=== PATIENT | male | born 1980 | race Caucasian/White ===

== ENCOUNTER 2017-02-11 23:06 | Emergency (ER) | payer BC ==
[2017-02-11 23:38] VITALS: BP 117/73; PULSE 77; BMI 29.7
[2017-02-12] MEDS ORDERED: LORazepam 2 MG/ML SDV VIAL ONE ×2 (00:04→00:57)
[2017-02-12] MEDS ORDERED: HALOPERIDOL LACTATE 5 MG/ML ONE (00:04)
--- NOTE | 2017-02-12 00:46 | PDOC ---
History of Present Illness - General History Source: EMS Exam Limitations: Clinical Condition, Intoxication - History of Present Illness Initial Comments: 02/12/17 02:06 36-year-old male brought in by EMS for acute alcohol intoxication. Patient refuses to cooperate with the history of present illness and review of systems. No further history is provided by EMS. No history of trauma is reported. REVIEW OF SYSTEMS Unable to obtain due to patient's intoxication EXAMINATION CONSTITUTIONAL: Awake and alert, alcohol on breath, ataxic, uncooperative, HEAD: Normocephalic; atraumatic EYES: Pupils are round and reactive, dilated up to 5 mm bilaterally; EOM intact ; no nystagmus; ENMT: External appears normal; normal oropharynx NECK: Supple; non-tender; no cervical lymphadenopathy CARD: Normal S1, S2; no murmurs, rubs, or gallops RESP: Normal chest excursion with respiration; breath sounds clear and equal bilaterally; no wheezes, rhonchi, or rales ABD: Soft, non-distended; non-tender; no palpable organomegaly, no palpable hernias EXT: Normal ROM in all four extremities; non-tender to palpation; distal pulses intact SKIN: Warm, dry, no rash NEURO: Awake and alert, oriented to self and place; uncooperative, gait-ataxic, moving all extremities symmetrically; <Saman Briscoe - Last Filed: 02/12/17 02:16> <Laura Garcia - Last Filed: 02/12/17 06:07> - General Chief Complaint: Alcohol intoxication Stated Complaint: INTOX Time Seen by Provider: 02/12/17 00:10 Past History - Psycho/Social/Smoking Cessation Hx Suicidal Ideation: No Smoking History: Unknown if ever smoked Information on smoking cessation initiated: No Hx Alcohol Use: No Drug/Substance Use Hx: No <Saman Briscoe - Last Filed: 02/12/17 02:16> <Laura Garcia - Last Filed: 02/12/17 06:07> - Past Medical History Allergies/Adverse Reactions: Allergies Allergy/AdvReac Type Severity Reaction Status Date / Time No Allergy Information Allergy Verified 02/11/17 23:33 Available Home Medications: Ambulatory Orders Unobtainable [Unobtainable] 02/11/17 *Physical Exam - Vital Signs Last Vital Signs Temp Pulse Resp BP Pulse Ox 77 14 117/73 97 02/11/17 23:33 02/11/17 23:33 02/11/17 23:33 02/11/17 23:33 <Saman Briscoe - Last Filed: 02/12/17 02:16> - Vital Signs Last Vital Signs Temp Pulse Resp BP Pulse Ox 77 14 117/73 97 02/11/17 23:33 02/11/17 23:33 02/11/17 23:33 02/11/17 23:33 <Laura Garcia - Last Filed: 02/12/17 06:07> ED Treatment Course - Medications Given in the ED: ED Medications Discontinued Medications Generic Name Dose Route Start Last Admin Trade Name Calista PRN Reason Stop Dose Admin Diphenhydramine HCl 50 mg 02/12/17 01:57 02/12/17 02:06 Benadryl Injection - IM 02/12/17 01:58 50 mg ONCE ONE Administration Haloperidol 5 mg 02/12/17 01:57 02/12/17 02:06 Haldol Injection (Fast Acting) - IM 02/12/17 01:58 5 mg ONCE ONE Administration Lorazepam 2 mg 02/12/17 01:57 02/12/17 02:06 Ativan Injection - IM 02/12/17 01:58 2 mg ONCE ONE Administration Lorazepam 1 mg 02/12/17 03:17 02/12/17 03:29 Ativan Injection - IVPUSH 02/12/17 03:18 Not Given ONCE ONE <Laura Garcia - Last Filed: 02/12/17 06:07> Medical Decision Making - Medical Decision Making 02/12/17 00:34 Patient is a 36-year-old male who was brought in by EMS for acute alcohol intoxication. On several occasions, patient has got not a bed and attempted to leave the ER with severely ataxic gait. Verbal interventions by myself, charge nurse and several security guards failed to pacify the patient. I contacted the patient's and inquired as to whether or not the patient can be picked up when she stated they live in [facility] and there is no other family that can pick the pt up. after another attempt to abscund, patient received Haldol, Ativan and Benadryl IM for agitation and prevention of self-harm. pt also placed in [address] on monitor and will frequently reassess. <Saman Briscoe - Last Filed: 02/12/17 02:16> *DC/Admit/Observation/Transfer <Saman Briscoe - Last Filed: 02/12/17 02:16> <Laura Garcia - Last Filed: 02/12/17 06:07> Diagnosis at time of Disposition: Intoxication - Discharge Dispostion Disposition: HOME Condition at time of disposition: Improved - Patient Instructions Printed Discharge Instructions: DI for Alcohol Abuse Additional Instructions: FOLLOW UP WITH YOUR DOCTOR NEEDED. Print Language: [place]ENLAND[place]
[2017-02-12] MEDS ORDERED: LORAZEPAM CARPU-JECT 2 MG/ML DISP.SYRIN IM ONE (01:57)
[2017-02-12] MEDS ORDERED: HALOPERIDOL LACTATE 5 MG/ML IM ONE (01:57)
[2017-02-12] MEDS ORDERED: LORAZEPAM CARPU-JECT 2 MG/ML DISP.SYRIN IVPUSH ONE (03:17)
== END 2017-02-12 06:20 | disposition home or self-care (01) ==
LOC: JER 23:06
PROC: 3E033NZ Introduction of Analgesics, Hypnotics, Sedatives into Peripheral Vein, Percutaneous Approach (ICD-10-PCS; principal; 2017-02-11)
PROC: 3E023NZ Introduction of Analgesics, Hypnotics, Sedatives into Muscle, Percutaneous Approach (ICD-10-PCS; 2017-02-11)
PROC: 3E023GC Introduction of Other Therapeutic Substance into Muscle, Percutaneous Approach (ICD-10-PCS; 2017-02-11)
PROC: 3E023GC Introduction of Other Therapeutic Substance into Muscle, Percutaneous Approach (ICD-10-PCS; 2017-02-11)
DX: F10.120 Alcohol abuse with intoxication, uncomplicated (principal); Y90.9 Presence of alcohol in blood, level not specified
CPT/HCPCS: 99283-25